=== PATIENT | male | born 1960 | race Caucasian/White ===

== ENCOUNTER 2019-07-11 07:07 | Outpatient (CLI) | payer OTHER | END 2019-07-11 23:59 | disposition home or self-care (01) | LOC: CVU 07:07 | PROVIDERS: ATTEND Internal Medicine Cardiovascular Disease | DX: I08.8 Other rheumatic multiple valve diseases (principal); I10 Essential (primary) hypertension | CPT/HCPCS: 0399T; 93306 ==